=== PATIENT | male | born 1955 | race Caucasian/White ===

== ENCOUNTER 2017-03-13 10:31 | Observation (INO) | payer OTHER ==
--- NOTE | 2017-03-13 10:57 | CPEKG ---
Heart Rate: 71 RR Interval: 845 P-R Interval: 156 QRSD Interval: 88 QT Interval: 420 QTC Interval: 457 P [place]: 58 QRS [place]: -18 T Wave [place]: 60 EKG Severity - OTHERWISE NORMAL ECG - EKG Impression: SINUS RHYTHM Electronically Signed By: Malvin Brewer 13-Mar-2017 12:58:47
[2017-03-13] MEDS ORDERED: ASPIRIN 81 MG CHEWABLE TAB ONE (11:06)
[2017-03-13] MEDS ORDERED: ASPIRIN 81 MG CHEWABLE TAB PO ONE (11:12)
--- NOTE | 2017-03-13 11:39 | EDPHY ---
HPI/HX/ROS/PE/MDM Narrative: CHIEF COMPLAINT: Chest discomfort HPI: The patient is a 62-year-old male with no significant past medical history. This morning at around 9:00 a.m. the patient began to experience discomfort in his chest. He describes it as a tightness and a soreness. This pain has been constantly present but slightly getting better since onset. He denies associated diaphoresis or nausea. His states that he was burping quite a bit and she treated him with some Pepcid. The patient denies any exacerbating or relieving factors to his pain. He has been in his normal state of health and exercise yesterday without issue. REVIEW OF SYSTEMS: Aside from elements discussed in the HPI, a comprehensive 10-point review of systems was reviewed and is negative. PMH: No known cardiac or pulmonary disease. No family history of heart attack. No hypertension or hyperlipidemia. SOCIAL HISTORY: . Denies drug abuse. PHYSICAL EXAM: General:Patient is alert, in no acute distress. ENT:Eyes are normal to inspection. ENT inspection normal. Neck: Normal inspection. Full range of motion. Respiratory:No respiratory distress. Breath sounds normal bilaterally. Cardiovascular: Regular rate and rhythm. Strong peripheral pulses. Normal cap refill. Abdomen:The abdomen is nontender to palpation. There are no peritoneal signs. There are normal bowel sounds. Back: Normal to inspection. No tenderness to palpation. Skin: Normal color. No rash. Warm and dry. Extremities: Normal appearance. Full range of motion. Neuro: Oriented x3. Normal motor function. Normal sensory function. (Taqueria Connor) ED Course: Assumed care of the patient from Dr. Connor at 11:45 a.m.. The patient's troponin did come back indeterminately elevated at 0.053. I evaluated the patient personally at 12:15 p.m.. He denies any active chest pain. I obtained the independent history that he developed chest discomfort after jaw and ear pain earlier today. The patient has no prior history of coronary artery disease. The patient has no risk factors for coronary artery disease. There is no family history of coronary artery disease. Consultation was made with the on-call aircraft sheet metal mechanic at 12:15 p.m.. The patient will be admitted to the PCU for further cardiac workup this evening. Consultation was made with Dr. Dora Valle from Cardiology at 12:20 p.m.. She will see the patient in consultation. Consultation was made with the hospitalist service at 12:25 p.m. (Malvin Brewer) EKG was ordered and interpreted by myself. Please see [place] system for official reading. (Taqueria Connor) - Data Points Imaging Results: Imaging Impressions Chest X-Ray 03/13/17 11:37 Impression: Negative chest. Laboratory Results: Laboratory Results 03/13/17 11:00 03/13/17 11:00 03/13/17 03/13/17 11:00 11:00 WBC 6.19 10^3/uL 10^3/uL (3.80-9.50) RBC 5.60 10^6/uL 10^6/uL (4.40-6.38) Hgb 15.0 g/dL g/dL (13.7-17.5) Hct 46.0 % % (40.0-51.0) MCV 82.1 fL fL (81.5-99.8) MCH 26.8 pg L pg (27.9-34.1) MCHC 32.6 g/dL g/dL (32.4-36.7) RDW 13.7 % % (11.5-15.2) Plt Count 207 10^3/uL 10^3/uL (150-400) MPV 11.1 fL fL (8.7-11.7) Neut % (Auto) 72.3 % % (39.3-74.2) Lymph % (Auto) 18.1 % % (15.0-45.0) Johnson % (Auto) 6.5 % % (4.5-13.0) Eos % (Auto) 1.5 % % (0.6-7.6) Baso % (Auto) 0.6 % % (0.3-1.7) Nucleat RBC Rel Count 0.0 % % (0.0-0.2) Absolute Neuts (auto) 4.48 10^3/uL 10^3/uL (1.70-6.50) Absolute Lymphs (auto) 1.12 10^3/uL 10^3/uL (1.00-3.00) Absolute Monos (auto) 0.40 10^3/uL 10^3/uL (0.30-0.80) Absolute Eos (auto) 0.09 10^3/uL 10^3/uL (0.03-0.40) Absolute Basos (auto) 0.04 10^3/uL 10^3/uL (0.02-0.10) Absolute Nucleated RBC 0.00 10^3/uL 10^3/uL (0-0.01) Immature Gran % 1.0 % % (0.0-1.1) Immature Gran # 0.06 10^3/uL 10^3/uL (0.00-0.10) Sodium 138 mEq/L mEq/L (134-144) Potassium 4.3 mEq/L mEq/L (3.5-5.2) Chloride 108 mEq/L mEq/L (97-110) Carbon Dioxide 20 mEq/l L mEq/l (22-31) Anion Gap 10 mEq/L mEq/L (8-16) BUN 15 mg/dL mg/dL (7-23) Creatinine 1.0 mg/dL mg/dL (0.7-1.3) Estimated GFR > 60 Glucose 102 mg/dL H mg/dL (70-100) Calcium 9.4 mg/dL mg/dL (8.5-10.4) Total Bilirubin 0.8 mg/dL mg/dL (0.1-1.4) Conjugated Bilirubin 0.2 mg/dL mg/dL (0.0-0.5) Unconjugated Bilirubin 0.6 mg/dL mg/dL (0.0-1.1) AST 26 IU/L IU/L (17-59) ALT 37 IU/L IU/L (21-72) Alkaline Phosphatase 48 IU/L IU/L (38-126) Troponin I 0.053 ng/mL H ng/mL (0-0.034) Total Protein 6.9 g/dL g/dL (6.3-8.2) Albumin 4.1 g/dL g/dL (3.5-5.0) Lipase 135.0 IU/L IU/L (23-300) Medications Given: Discontinued Medications Aspirin (Aspirin) 324 mg PO EDNOW ONE Stop: 03/13/17 11:13 Last Admin: 03/13/17 11:13 Dose: 324 mg General Time Seen by Provider: 03/13/17 11:29 Initial Vital Signs: Initial Vital Signs Temperature (C) 36.8 C 03/13/17 10:40 Heart Rate 83 03/13/17 10:40 Respiratory Rate 18 03/13/17 10:40 Blood Pressure 136/93 H 03/13/17 10:40 O2 Sat (%) 98 03/13/17 10:40 O2 Delivery Mode Room Air O2 (L/minute) 2 Allergies/Adverse Reactions: No Known Allergies Allergy (Unverified 03/13/17 10:45) Home Medications: Medication Instructions Recorded Fexofenadine HCl [Radha Allergy] 180 mg PO DAILY 03/13/17 Herbals/Supplements -Info Only 1 ea PO DAILY 03/13/17 Aspirin EC [Aspirin EC 325 mg (*)] 325 mg PO DAILY #30 tab 03/14/17 Atorvastatin Calcium [Lipitor 40 40 mg PO DAILY #30 tab 03/14/17 mg (*)] Metoprolol Tartrate [Lopressor 25 25 mg PO BID #60 tab 03/14/17 mg (*)] Prasugrel HCl [Effient 10mg (*)] 10 mg PO DAILY #30 tab 03/14/17 Departure - Departure Disposition: [facility] Inpatient Acute Clinical Impression: Chest pain, Elevated troponin Condition: Good
[2017-03-13 11:40] LABS: ABSOLUTE IMMATURE GRANULOCYTES 0.06 10^3/uL (0.00-0.10); ADD DIFF? NO; ADD MORPH? NO; ADD SCAN? NO; ATYPICAL LYMPHOCYTE FLAG 10 (0-99); FRAGMENT RBC FLAG 0 (0-99); LEFT SHIFT FLG 10 (0-99); LIPEMIA HEMOLYSIS FLAG 80 (0-99); MEAN CELL HEMOGLOBIN 26.8 pg (27.9-34.1); MEAN CELL HEMOGLOBIN CONCENTR. 32.6 g/dL (32.4-36.7); MEAN CELL VOLUME 82.1 fL (81.5-99.8); MEAN PLATELET VOLUME 11.1 fL (8.7-11.7); PLATELET CLUMPS FLAG 10 (0-99); PLATELET COUNT 207 10^3/uL (150-400); RED CELL DISTRIBUTION WIDTH 13.7 % (11.5-15.2)
[2017-03-13 11:47] LABS: ALANINE AMINOTRANSFERASE 37 IU/L (21-72); ALBUMIN 4.1 g/dL (3.5-5.0); ALKALINE PHOSPHATASE 48 IU/L (38-126); ANION GAP 10 mEq/L (8-16); ASPARTATE AMINOTRANSFERASE 26 IU/L (17-59); BILIRUBIN,TOTAL 0.8 mg/dL (0.1-1.4); BILIRUBIN-CONJUGATED 0.2 mg/dL (0.0-0.5); BILIRUBIN-UNCONJUGATED 0.6 mg/dL (0.0-1.1); CALCIUM 9.4 mg/dL (8.5-10.4); CARBON DIOXIDE 20 mEq/l (22-31); CHLORIDE 108 mEq/L (97-110); GLOMERULAR FILTRATION RATE > 60; GLUCOSE 102 mg/dL (70-100); POTASSIUM 4.3 mEq/L (3.5-5.2); SODIUM 138 mEq/L (134-144); TOTAL PROTEIN 6.9 g/dL (6.3-8.2)
[2017-03-13 11:59] LABS: TROPONIN I 0.053 ng/mL (0-0.034)
[2017-03-13] MEDS ORDERED: diphenhydrAMINE 25 MG CAP PO ONE (13:04)
[2017-03-13] MEDS ORDERED: ACETAMINOPHEN 325 MG TAB PO PRN (13:04)
[2017-03-13] MEDS ORDERED: NITROGLYCERIN 0.4 MG BTL SL PRN (13:04)
[2017-03-13] MEDS ORDERED: ASPIRIN EC 325 MG TAB PO ONE (13:04)
[2017-03-13] MEDS ORDERED: TEMAZEPAM 15 MG CAP PO PRN (13:04)
[2017-03-13] MEDS ORDERED: LIDOCAINE 1% 300 MG/30 ML SDV ONE (13:04)
[2017-03-13] MEDS ORDERED: DIAZEPAM 5 MG TAB PO ONE (13:04)
[2017-03-13] MEDS ORDERED: VERAPAMIL 5 MG/2 ML VIAL ONE (13:05)
[2017-03-13] MEDS ORDERED: fentaNYL 100 MCG/2 ML INJ ONE (13:05)
[2017-03-13] MEDS ORDERED: MIDAZOLAM 2 MG/2 ML VIAL ONE (13:05)
[2017-03-13] MEDS ORDERED: HEPARIN 10,000 UNIT/10 ML MDV ONE (13:06)
[2017-03-13] MEDS ORDERED: IOPAMIDOL (ISOVUE-370) 150 ML BTL IV ONE (13:06)
--- NOTE | 2017-03-13 13:58 | GCON ---
[f rep st] CONSULTATION CARDIOLOGY CONSULTATION DATE OF CONSULTATION: 03/13/2017 REFERRING PHYSICIAN: Malvin Brewer MD HISTORY OF PRESENT ILLNESS: The patient is a 62-year-old male with essentially no prior medical his tory. This morning, he was working in his shop in the basement. When he came upstairs, he started to notice pain in his left ear. This spread into his throat and he initially thought he might be co keerthi down with an upper respiratory tract illness. However, the discomfort spread into the chest an d was vague. It was only [id number] in intensity. There was no associated diaphoresis, nause a, or shortness of breath. He did notice that he felt like he needed to belch frequently. Therefor e, he tried taking some Pepcid. After an hour or so his symptoms had not resolved and he presented to the emergency room for evaluation. In the ER, his pain is now resolved. His ECG is unremarkable . However, his troponin is minimally elevated at 0.053. His only cardiovascular risk factor is a history of borderline hyperlipidemia. He has never been tr eated for this. He does not have hypertension or diabetes. There is no family history of CAD. He has had no prior cardiac testing. He exercises regularly. PAST MEDICAL HISTORY: Notable only for borderline hyperlipidemia. MEDICATIONS: He takes no prescription medications. ALLERGIES: No known drug allergies. FAMILY HISTORY: Noncontributory. SOCIAL HISTORY: He is . His is with him in the emergency room. They have no offspring . He is a retired musician. Alcohol consumption is minimal. He has never been a smoker of cigaret duglas. He does smoke marijuana on almost a daily basis. REVIEW OF SYSTEMS: Apart from the symptoms mentioned in the History of Present Illness, a 10-point review was negative. PHYSICAL EXAMINATION: VITAL SIGNS: Heart rate 72 with normal sinus rhythm on the monitor. Blood p ressure 142/76. GENERAL: This is a thin, well-developed male, in no acute distress. He is alert a nd oriented x3. HEAD AND NECK: No scleral icterus. Mucous membranes moist. Carotid pulses 2+ wit hout bruits. There is no JVD. CHEST: Lung patel clear to auscultation. CARDIAC: Regular rate a nd rhythm with normal S1 and S2. There is no murmur or gallop. ABDOMEN: Soft, nontender, nondiste nded, with normal bowel sounds. No masses. EXTREMITIES: 2+ pulses in all 4 extremities. An Yamil test on the right wrist was normal at less t ivan 5 seconds. LABORATORY STUDIES: Sodium 138, potassium 4.3, BUN and creatinine 15 and 1.0. Troponin is 0.053. CBC demonstrates a white blood cell count of 6.19 with hemoglobin and hematocrit of 15.0 and 46.0. Platelet count is 207,000. ECG: His ECG demonstrates normal sinus rhythm. There are no Q-waves or conduction system disturban rasheeda. There are no acute ischemic ST-T wave abnormalities. IMPRESSION: This is a 62-year-old male with a low risk cardiovascular profile who presents with sym ptoms and laboratory evidence consistent with unstable angina. I outlined options for a conservativ e approach with admission to the hospital and serial cardiac enzyme testing to be followed by stress testing tomorrow versus proceeding directly with cardiac catheterization. The patient has opted fo r the latter. PLAN: Preparations are underway to take the patient to the cardiac catheterization lab shortly. Felix rt diagnostic and therapeutic decisions await the outcome of his angiogram. /[id number]/MODL
[2017-03-13] MEDS ORDERED: PRASUGREL HCL 10 MG TAB ONE (14:33)
--- NOTE | 2017-03-13 14:52 | CPEKG ---
Heart Rate: 64 RR Interval: 938 P-R Interval: 160 QRSD Interval: 86 QT Interval: 428 QTC Interval: 442 P [place]: 52 QRS [place]: -44 T Wave [place]: 16 EKG Severity - ABNORMAL ECG - EKG Impression: SINUS RHYTHM EKG Impression: PROBABLE INFERIOR INFARCT, AGE INDETERMINATE EKG Impression: The Q wave in aVF is new since March 13, 2017: 10:56 Electronically Signed By: Don Lal 13-Mar-2017 16:03:55
[2017-03-13] MEDS ORDERED: ONDANSETRON 4 MG/2 ML VIAL IVP PRN (14:54)
[2017-03-13] MEDS ORDERED: HYDROCODONE/APAP 5/325 TAB PO PRN (14:54)
[2017-03-13] MEDS ORDERED: LORazepam 2 MG/ML INJ IVP PRN (14:54)
[2017-03-13] MEDS ORDERED: PRASUGREL HCL 10 MG TAB PO ONE (14:54)
[2017-03-13] MEDS ORDERED: ATROPINE SULFATE 1 MG/10 ML SYR IVP PRN (14:54)
[2017-03-13] MEDS ORDERED: NS 1,000 ML IV SCH (15:00)
--- NOTE | 2017-03-13 15:12 | PDDXCAT ---
Diagnostic Cath Note - . Date: 03/13/17 Engineering Documentation Specialist: Ron Indication: other (Unstable angina with elevated troponin.) - Procedure Access: right wrist Procedure: left heart catheterization, coronary angiography, left ventriculogram , other (PCI of a large posterolateral branch of the circumflex.) - Materials Left Heart Cath size: 5F Left Heart Cath materials: other (Sightseer and Pigtail) - Findings-Left Heart Catheterization LM: Normal. LAD: Minimal irregularities. LCX: Co-dominant with a focal 80 to 90% lesion in a large posterolateral branch ; otherwise minimal irregularites. RCA: Co-dominant with diffuse, mild irregularities. EDP: 24 mmHg LVEF: 70% Wall motion: Normal. Complications: None. Estimated blood loss: <50ml Closure method: TR Band Assessment: 1) Normal LV systolic function. 2) Coronary artery disease as described above. 3) Successful PCI of a large posterolateral branch of the circumflex using a single drug coated stent. Intervention: Based on the patient's clinical history and diagnostic angiography, the decision was made to perform PCI of the focal 80-90% lesion in the large posterolateral branch of the circumflex. The patient received 3000 units of intravenous heparin in addition to the 5000 units that had been given at the beginning of the procedure. A 6 Danish CLS 3.5 guide catheter was advanced to the left main. An Intuition guidewire was advanced to the distal portion of the circumflex. Predilatation of the target lesion was performed using a 3.0 x 15 mm Emerge balloon. A 3.0 x 16 mm Synergy stent was then advanced into position and deployed at high pressure. Final angiograms demonstrated 0% residual stenosis and EMILY-III flow. Patient Problems: Problems Problem Status Onset Chest pain Acute Elevated troponin Acute
[2017-03-13 19:32] LABS: CK-MB INTERPRETATION POSITIVE (NEGATIVE)
[2017-03-13] MEDS: METOPROLOL TARTRATE 25 MG TAB PO SCH (21:06)
[2017-03-14 05:26] LABS: % IMMATURE GRANULYOCYTES 0.7 % (0.0-1.1); ABSOLUTE IMMATURE GRANULOCYTES 0.05 10^3/uL (0.00-0.10); ADD DIFF? NO; ADD MORPH? NO; ADD SCAN? NO; ATYPICAL LYMPHOCYTE FLAG 30 (0-99); FRAGMENT RBC FLAG 0 (0-99); HEMATOCRIT 43.7 % (40.0-51.0); HEMOGLOBIN 14.4 g/dL (13.7-17.5); LEFT SHIFT FLG 0 (0-99); LIPEMIA HEMOLYSIS FLAG 80 (0-99); MEAN CELL HEMOGLOBIN 27.1 pg (27.9-34.1); MEAN CELL VOLUME 82.1 fL (81.5-99.8); PLATELET CLUMPS FLAG 0 (0-99); PLATELET COUNT 210 10^3/uL (150-400); RED BLOOD CELL COUNT 5.32 10^6/uL (4.40-6.38); RED CELL DISTRIBUTION WIDTH 13.7 % (11.5-15.2)
[2017-03-14 06:01] LABS: ALBUMIN 3.6 g/dL (3.5-5.0); ANION GAP 8 mEq/L (8-16); ASPARTATE AMINOTRANSFERASE 49 IU/L (17-59); BILIRUBIN,TOTAL 0.8 mg/dL (0.1-1.4); CARBON DIOXIDE 21 mEq/l (22-31); CHLORIDE 110 mEq/L (97-110); CHOLESTEROL 209 mg/dL (140-220); CHOLESTEROL/HDL RATIO 3.87 RATIO (1.00-4.97); GLOMERULAR FILTRATION RATE > 60; GLUCOSE 85 mg/dL (70-100); HIGH DENSITY LIPOPROTEIN 54 mg/dL (40-65); LACTATE DEHYDROGENASE 571 IU/L (313-618); LDL/HDL RATIO 2.52 RATIO (1.00-3.64); LOW DENSITY LIPOPROTEIN 136 mg/dL (80-100); MAGNESIUM 2.1 mg/dL (1.6-2.3); NON-HIGH DENSITY LIPOPROTEIN 155 mg/dL (90-129); POTASSIUM 4.8 mEq/L (3.5-5.2); SODIUM 139 mEq/L (134-144); TRIGLYCERIDE 98 mg/dL (40-150); VERY LOW DENSITY LIPOPROTEINS 19 mg/dL (8-25)
[2017-03-14 06:06] LABS: CK-MB INTERPRETATION POSITIVE (NEGATIVE)
[2017-03-14 07:20] VITALS: BP 128/84; PULSE 63; RESP 18; TEMP 97.7; O2SAT 95
--- NOTE | 2017-03-14 08:39 | CPEKG ---
Heart Rate: 75 RR Interval: 800 P-R Interval: 152 QRSD Interval: 82 QT Interval: 408 QTC Interval: 456 P Nursery: 48 QRS Nursery: -54 T Wave Nursery: 17 EKG Severity - ABNORMAL ECG - EKG Impression: SINUS RHYTHM EKG Impression: PROBABLE INFERIOR INFARCT, AGE INDETERMINATE EKG Impression: No significant change from March 13, 2017 Electronically Signed By: Don Lal 14-Mar-2017 17:03:11
[2017-03-14] MEDS ORDERED: ASPIRIN EC 325 MG TAB PO SCH (09:00)
[2017-03-14] MEDS ORDERED: PRASUGREL HCL 10 MG TAB PO SCH (09:00)
[2017-03-14] MEDS ORDERED: ATORVASTATIN CALCIUM 40 MG TAB PO SCH (09:00)
[2017-03-14] MEDS: METOPROLOL TARTRATE 25 MG TAB PO SCH (09:09)
--- NOTE | 2017-03-15 21:19 | GDS ---
[f rep st] DISCHARGE SUMMARY REASON FOR ADMISSION: Acute coronary syndrome. HOSPITAL COURSE: Please refer to my dictated cardiology consultation and cardiac catheterization la luz maria procedure report. Briefly, the patient is a 62-year-old male with a history of mild hyperl ipidemia, but no other medical problems who experienced new onset chest discomfort on the morning of admission. He initially interpreted his symptoms as possible gastroesophageal reflux. However, hi s chest pain did not improve with acid margarita therapy and he presented to the emergency room for ev aluation. In the emergency room his ECG was unremarkable, but his troponin was mildly elevated. Therefore, he underwent a cardiac catheterization which demonstrated normal left ventricular systolic function an d mild irregularities of the LAD and RCA. The circumflex contained a focal 80% to 90% lesion in the midportion of a large posterolateral branch. He underwent PCI with placement of a single 3.0 x 16 mm Synergy drug-coated stent. There were no co mplications. He remained asymptomatic throughout his hospital stay. His troponin peaked at 6.55. His total cholesterol was measured at 209, with HDL 54, LDL 136, and triglycerides 98. RECOMMENDATIONS/DISPOSITION: The patient is discharged in stable condition. His medical regimen w ill consist of aspirin 325 mg daily which can be reduced to 81 mg daily in the next few weeks, [place] nt 10 mg daily, metoprolol 25 mg twice daily, and atorvastatin 40 mg daily. He was instructed to co jessica with his heart healthy eating habits and regular exercise. He will follow up with me in the office on April 10. DISCHARGE DIAGNOSES: 1. Acute coronary syndrome. 2. Coronary artery disease. 3. Hyperlipidemia. 4. Status post percutaneous coronary intervention of a posterolateral branch of the circumflex nba duarte a single drug coated stent. /[id number]/MODL
[2017-03-17 15:31] LABS: 2C19S INTERPRETATION See Comments
== END 2017-03-14 10:43 | disposition home or self-care (01) ==
LOC: INTOOBSV 12:22 → F2W 16:15
PROVIDERS: ADMIT Student in an Organized Health Care Education/Training Program; ATTEND Internal Medicine Interventional Cardiology
PROC: 027034Z Dilation of Coronary Artery, One Artery with Drug-eluting Intraluminal Device, Percutaneous Approach (ICD-10-PCS; principal; 2017-03-13)
PROC: 4A023N7 Measurement of Cardiac Sampling and Pressure, Left Heart, Percutaneous Approach (ICD-10-PCS; principal; 2017-03-13)
PROC: B2151ZZ Fluoroscopy of Left Heart using Low Osmolar Contrast (ICD-10-PCS; principal; 2017-03-13)
PROC: B2111ZZ Fluoroscopy of Multiple Coronary Arteries using Low Osmolar Contrast (ICD-10-PCS; principal; 2017-03-13)
DX: I24.9 Acute ischemic heart disease, unspecified (principal); I25.110 Atherosclerotic heart disease of native coronary artery with unstable angina pectoris; E78.5 Hyperlipidemia, unspecified
CPT/HCPCS: 71020; 92928; 93005; 93458; 99285; C1725; C1769; C1887; G0378; 81225-90; C1874; C9600; J1644; J2250; J3010; Q9967